=== PATIENT | female | born 1970 | race Caucasian/White ===

== ENCOUNTER 2023-08-30 10:28 | Emergency (ER) | payer OTHER, SELFPAY ==
[2023-08-30 10:41] VITALS: BP 126/86; PULSE 92; RESP 16; TEMP 36.7; O2SAT 99
--- NOTE | 2023-08-30 10:58 | ED.URI ---
HPI - URI/Sore Throat General Chief Complaint: Upper Respiratory Infection Stated Complaint: cough,sorethroat Time Seen by Provider: 08/30/23 10:35 Source: patient Mode of arrival: ambulatory Limitations: no limitations History of Present Illness HPI Narrative: 52-year-old female presents to [facility] with complaints of sore throat, dry cough, postnasal drainage, sinus pressure, nasal congestion and chest congestion for the past 12-14 days. Patient has been taking multivitamins, [id number] Motrin and Tylenol with minimal relief. Patient is a nonsmoker. Patient denies sick contacts. Patient denies recent travel. Patient denies nausea, vomiting, diarrhea, shortness of breath or wheezing. MD elicited complaint: rhinorrhea, nasal congestion and sinus pain Onset (ago): day(s) (14) Severity: mild Able to tolerate fluids by mouth: Yes Treatments prior to arrival: acetaminophen and ibuprofen Related Data Allergies Allergy/AdvReac Type Severity Reaction Status Date / Time Penicillins AdvReac Mild Hives Unverified 08/30/23 10:48 Review of Systems Constitutional: Constitutional: Reports chills, Denies fatigue, Denies fever(s) and Denies weakness ENT: Denies dizziness, Denies epistaxis, Reports nasal congestion and Reports sore throat Cardiovascular: Cardiovascular: Denies chest pain Respiratory: Respiratory: Reports cough, Denies dyspnea and Denies wheezing Gastrointestinal: Gastrointestinal: Denies diarrhea, Denies nausea and Denies vomiting Musculoskeletal: Musculoskeletal: Denies arthralgias and Denies joint swelling Integumentary/Breasts: Skin/Breast: Denies rash Neurologic: Denies vertigo, Denies dizziness and Denies syncope PMFSH Social History Social History Smoking status: Never smoker Alcohol intake: current Comments At time of signature, I agree with nursing past medical, surgical, social and family history. There is no relevant family history pertinent to the presenting complaint. Exam Const: General: healthy appearing and no acute distress Nutritional Appearance: well nourished Orientation/consciousness: patient oriented x3 Limitations: no limitations HENMT: Head: normal to inspection Ears: external ears normal, TM's normal bilaterally and EAC's normal Face and sinus: sinus tenderness frontal Mouth: Yes Normal oral and palatal mucosa present, Yes lip normal and Yes moist mucous membranes Throat: posterior oropharynx normal and uvula midline Other: Bilateral nasal congestion noted Eyes: Conjunctivae: conjunctivae normal Neck: Neck: normal visual inspection Resp: Effort & Inspection: normal respiratory effort and not labored Auscultation: clear to auscultation bilaterally, no crackles, no rales, no rhonchi and no wheezes Cardio: Rate: regular rate Rhythm: regular rhythm Heart sounds: no murmurs Skin: General skin exam: normal color Neuro: General: patient oriented x3 Speech: normal speech Psych: Affect: normal affect Attitude: cooperative Course Course Level of Care: Express Care Visit Vital Signs Vital signs: Vital Signs Temperature 36.7 C 08/30/23 10:41 Pulse Rate 92 08/30/23 10:41 Respiratory Rate 16 08/30/23 10:41 Blood Pressure 126/86 08/30/23 10:41 Pulse Oximetry 99 08/30/23 10:41 Oxygen Delivery Room Air 08/30/23 10:41 Temperature 36.7 C 08/30/23 10:41 Pulse Rate 92 08/30/23 10:41 Respiratory Rate 16 08/30/23 10:41 Blood Pressure 126/86 08/30/23 10:41 Pulse Oximetry 99 08/30/23 10:41 Oxygen Delivery Room Air 08/30/23 10:41 MDM - URI/Sore Throat MDM Narrative Medical decision making narrative: Instructed patient to take [id number] Claritin and Flonase daily. Instructed patient to take antibiotic as prescribed. Instructed patient to follow-up with primary care provider if symptoms do not improve Differential Diagnosis Differential diagnosis: Like
== END 2023-08-30 11:05 | disposition home or self-care (01) ==
PROVIDERS: Emergency Provider Nurse Practitioner Family; PCP Family Medicine
DX: J01.90 Acute sinusitis, unspecified (principal); Z86.16 Personal history of COVID-19
CPT/HCPCS: 99213; G0463

== ENCOUNTER 2024-04-30 17:49 | Emergency (ER) | payer OTHER, SELFPAY ==
--- NOTE | 2024-04-30 17:56 | ED.GENADULT ---
HPI - General Adult General Chief complaint: Skin/Abscess/Foreign Body Stated complaint: Poison Bella out of Control Time Seen by Provider: 04/30/24 17:56 Source: patient Mode of arrival: ambulatory Limitations: no limitations History of Present Illness HPI narrative: 53-year-old female patient presents to the [facility] with complaints of a rash for the past week. Patient states she was out of town the [facility] and believes she got poison bella. Patient states it is on bilateral arms, abdomen, torso and is starting to spread to her legs and in the perineal area. Patient denies any fevers, body aches or chills. Denies any trouble breathing or swelling to the throat. Patient states she did take some Benadryl and use some [id number] calamine lotion. Related Data Allergies Allergy/AdvReac Type Severity Reaction Status Date / Time Penicillins AdvReac Mild Hives Verified 04/30/24 17:52 Review of Systems Review of Systems: CONSTITUTIONAL: Denies fever, chills, or sweats. EYES: Denies visual changes, redness, or discharge. ENT: Denies rhinorrhea, congestion, sore throat, or otalgia. CARDIOVASCULAR: Denies chest pain, palpitations, or edema. RESPIRATORY: Denies cough or dyspnea. GASTROINTESTINAL: Denies abdominal pain, nausea, vomiting, or diarrhea. GENITOURINARY: Denies dysuria or hematuria. SKIN: Positive rash with itching. MUSCULOSKELETAL: Denies back pain, joint pain, or myalgia. NEUROLOGIC: Denies headache, numbness, or weakness. PSYCHIATRIC: Denies anxiety or depression. PMFSH Social History Social History Smoking status: Never smoker Alcohol intake: current Comments At the time of my signature I agree with nursing past medical history, surgical, social, and family history. There is no relevant family history pertinent to the presenting complaint. Exam Narrative: GENERAL: Well-appearing, well-nourished, and in no acute distress. HEAD: Normocephalic, atraumatic. EYES: PERRLA and EOMI. ENT: Nares clear, no rhinorrhea or epistaxis. Mucous membranes moist. NECK: Supple. No lymphadenopathy CHEST: Clear to auscultation. No respiratory distress. HEART: Regular rate and rhythm. No murmur heard. Normal peripheral pulses. ABDOMEN: Soft, nontender, nondistended, normal active bowel sounds. EXTREMITIES: Normal range of motion. No edema. SKIN: Warm, dry, patient has erythemic linear rashes with some bullous appearance scattered throughout the body including bilateral arms, torso and bilateral upper legs. some areas to have serous sangous drainage noted. NEURO: No focal deficits. Alert and oriented x3. Course Course Level of Care: Express Care Visit Vital Signs Vital signs: Vital Signs Temperature 37.1 C 04/30/24 17:59 Pulse Rate 71 04/30/24 17:59 Respiratory Rate 16 04/30/24 17:59 Blood Pressure 125/92 H 04/30/24 17:59 Pulse Oximetry 100 04/30/24 17:59 Oxygen Delivery Room Air 04/30/24 17:59 Temperature 37.1 C 04/30/24 17:59 Pulse Rate 71 04/30/24 17:59 Respiratory Rate 16 04/30/24 17:59 Blood Pressure 125/92 H 04/30/24 17:59 Pulse Oximetry 100 04/30/24 17:59 Oxygen Delivery Room Air 04/30/24 17:59 Vital signs reviewed Medical Decision Making MDM Narrative Medical decision making narrative: plan of care for patient is to discharge home with an oral steroid taper for the poison bella. Discussed with patient she can take a 24 hour antihistamine to help with itching as well as [id number] hydrocortisone and count money lotion and help with the itching. Patient verbalized understanding denies any other questions or concerns at this time. Differential Diagnosis Differential Diagnosis: differential diagnosis: Contact dermatitis, poison bella, poison sumac, psoriasis, eczema, allergic reaction, drug reaction, scabies, tinea syphilis, lung disease, viral exanthema, pityriasis, erythema multiforme. Renetta
[2024-04-30 17:59] VITALS: BP 125/92; PULSE 71; RESP 16; TEMP 37.1; O2SAT 100
== END 2024-04-30 18:11 | disposition home or self-care (01) ==
PROVIDERS: Emergency Provider Nurse Practitioner Family
DX: L25.5 Unspecified contact dermatitis due to plants, except food (principal); Z86.16 Personal history of COVID-19
CPT/HCPCS: 99213; G0463